=== PATIENT | female | born 1995 | race Caucasian/White ===

== ENCOUNTER 2023-06-05 08:04 | Emergency (ER) | payer OTHER, SELFPAY ==
[2023-06-05 08:18] VITALS: BP 142/91; PULSE 94; RESP 18; TEMP 37.3; O2SAT 100
--- NOTE | 2023-06-05 08:26 | ED.GENADULT ---
HPI - General Adult General Chief complaint: Urogenital-Female Stated complaint: Urinary Problem/Back Pain Source: patient Mode of arrival: ambulatory Limitations: no limitations History of Present Illness HPI narrative: Patient presents for evaluation of urinary symptoms for last 2 days. Symptoms include urinary frequency, urgency, hesitancy, and incomplete emptying. No fever, chills, nausea, vomiting, abdominal pain, vaginal bleeding/discharge. She woke from sleep at 0400 this morning with right flank pain. At that time her pain was 8/10 in severity but she now rates pain 3/10 in severity after taking ibuprofen. LMP 2 weeks ago. She is not sexually active. No history of UTI or kidney stones per reports. Related Data Home Medications Medication Instructions Recorded Confirmed No Home Medications 06/05/23 06/05/23 Allergies Allergy/AdvReac Type Severity Reaction Status Date / Time No Known Allergies Allergy Verified 06/05/23 08:17 Review of Systems Review of Systems: CONSTITUTIONAL: Denies fever, chills, or sweats. EYES: Denies visual changes, redness, or discharge. ENT: Denies rhinorrhea, congestion, sore throat, or otalgia. CARDIOVASCULAR: Denies chest pain, palpitations, or edema. RESPIRATORY: Denies cough or dyspnea. GASTROINTESTINAL: Denies abdominal pain, nausea, vomiting, or diarrhea. GENITOURINARY: Reports urinary frequency, urgency, hesitancy, incomplete emptying SKIN: Denies rash or itching. MUSCULOSKELETAL: Reports right flank pain NEUROLOGIC: Denies headache, numbness, dizziness, or weakness. PSYCHIATRIC: Denies anxiety or depression. [facility] Past Medical History Medical History (Updated 06/05/23 @ 08:40 by Justin Owen, ESPINOZA, ) No pertinent past medical history Surgical History Surgical History No pertinent past surgical history Family History Family History (Updated 06/05/23 @ 08:36 by ESPINOZA Jerry, ) Mother Family history non-contributory Social History Social History Substance use: never Living arrangements: with family Gender identity (if verbalized by the patient): Female Spiritual care concerns: No Exam Narrative: GENERAL: Well-appearing, well-nourished, and in no acute distress. HEAD: Normocephalic, atraumatic. EYES: PERRLA and EOMI. ENT: Nares clear, no rhinorrhea or epistaxis. Mucous membranes moist. Oropharynx without tonsillar hypertrophy exudate or other lesions. Bilateral TMs pearly jackson nonbulging NECK: Supple. No adenopathy or masses. No carotid bruits or JVD CHEST: Clear to auscultation. No respiratory distress. No wheezes rales or rhonchi HEART: Regular rate and rhythm. No murmur heard. Normal peripheral pulses. ABDOMEN: Soft, nontender, nondistended, normal active bowel sounds. BACK: No CVA tenderness EXTREMITIES: Normal range of motion. No edema. SKIN: Warm, dry, no rash. NEURO: No focal deficits. Alert and oriented x3. PSYCH: Normal mood and affect. Course Course Emergency Course: This is a 27-year-old female who presented for evaluation of urinary symptoms. No evidence of infection in her urine today. No CVA tenderness or abdominal tenderness. She does have some blood present which could suggest kidney stone. I did offer to send her to the ER for CT imaging. She declined. I think this is reasonable at the present time as her pain is controlled. I did advise if her pain returns or worsens, she should go to the ER, and she is agreeable with this plan. Otherwise, she should follow up with her PCP. Pt in agreement with plan of care. Level of Care: Express Care Visit Vital Signs Vital signs: Vital Signs Temperature 37.3 C 06/05/23 08:18 Pulse Rate 94 06/05/23 08:18 Respiratory Rate 18 06/05/23 08:18 Blood Pressure 142/91 H 06/05/23 08:18 Pulse Oximetry 100 06/05/23 08:18
== END 2023-06-05 08:45 | disposition home or self-care (01) ==
PROVIDERS: Emergency Provider Nurse Practitioner
DX: R31.9 Hematuria, unspecified (principal); R35.0 Frequency of micturition; R39.11 Hesitancy of micturition; R33.9 Retention of urine, unspecified
CPT/HCPCS: 81003; 99213; G0463